=== PATIENT | male | born 1980 | race Hispanic/Latino ===

== ENCOUNTER 2019-04-18 08:28 | Outpatient (CLI) | payer OTHER ==
--- NOTE | 2019-04-18 10:40 | RAD ---
RIGHT FOREARM 2 VIEWS: Date: 04/18/19 HISTORY: Injury several months ago with pain in lateral aspect of forearm since. FINDINGS: No fracture, dislocation, or other significant acute osseous abnormality. IMPRESSION: No significant acute process. POS: [facility]
== END 2019-04-18 08:29 | disposition home or self-care (01) ==
LOC: BICRAD 08:28
PROVIDERS: ATTEND Family Medicine
DX: M79.631 Pain in right forearm (principal)